=== PATIENT | male | born 1955 | race Caucasian/White ===

== ENCOUNTER → 2022-02-20 13:05 | Outpatient (BNVA) | payer MEDICARE, MEDICAID, SELFPAY | PROVIDERS: PCP Internal Medicine; Visit Provider Nurse Practitioner Family | DX: R56.9 Unspecified convulsions (principal); Z79.899 Other long term (current) drug therapy | CPT/HCPCS: 99202 ==

== ENCOUNTER → 2022-07-03 13:43 | Outpatient (BNVA) | payer MEDICARE, MEDICAID, SELFPAY | PROVIDERS: PCP Internal Medicine; Visit Provider Nurse Practitioner Family | DX: R56.9 Unspecified convulsions (principal); Z79.899 Other long term (current) drug therapy | CPT/HCPCS: 99212 ==

== ENCOUNTER 2023-02-24 08:46 | Outpatient (AMB) | payer MEDICARE, MEDICAID, SELFPAY ==
--- NOTE | 2023-02-24 08:53 | A.OFFVIS_ITS ---
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 Pt currently on Dilantin 100 mg TID and his seizure controls well. He has not have a seizure episodes more than 5 years. 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 Pt is wheel chair bound, and has right side weakness. Denies behavior issue. He is compliant all his medications. Lab result reviewed, ALK phos 185 H and Dilantin level was 7.4 L. [facility] Social History (Updated 02/24/23 @ 08:57 by Kirstie Sullivan [facility]) Alcohol intake: former Patient Tobacco Use Status: Former Tobacco user Review of Systems Const All systems reviewed & are unremarkable except as noted in HPI and below Physical Exam Vital Signs: Last Vital Signs Pulse 65 02/24/23 08:59 BP 130/62 02/24/23 08:59 Pulse Ox 95 02/24/23 08:59 Oxygen Delivery Method Room Air 02/24/23 08:59 Const General: cooperative Nutritional Appearance: obese Limitations: physical limitations, wheelchair and other limitations (cognitive impairment) Resp Effort & Inspection: normal respiratory effort Neuro Other: Difficulty follow directions. Cognitive impairment. Right upper and lower extremities weakness. Right arm contracted. General: Unable to assess gait Gait exam (Neuro): Unable to assess gait Psych Appearance: grossly normal Attitude: cooperative Assessment & Plan Assessment & Plan (1) Seizure: Code(s): R56.9 - Unspecified convulsions Plan Continue to take Dilantin 100 mg TID. Continue to monitor his liver function. Will check labs before next visit. Orders: Orders Complete Blood Count Auto Diff Today R56.9 - Unspecified convulsions Comprehensive Met. Panel Today R56.9 - Unspecified convulsions Phenytoin Dilantin Today R56.9 - Unspecified convulsions Coding Level of Care Code Est Pt Level 3 (91357) Diagnoses Seizure R56.9
[2023-02-24 08:59] VITALS: BP 130/62; PULSE 65; O2SAT 95
== END 2023-02-24 09:15 | disposition home or self-care (01) ==
LOC: HO.HSMS 08:46
PROVIDERS: PCP Internal Medicine; Visit Provider Nurse Practitioner Family
DX: R56.9 Unspecified convulsions (principal)
CPT/HCPCS: 99213

== ENCOUNTER → 2023-02-24 08:46 | Outpatient (BNVA) | payer MEDICARE, MEDICAID, SELFPAY | PROVIDERS: PCP Internal Medicine; Visit Provider Nurse Practitioner Family | DX: R56.9 Unspecified convulsions (principal); Z86.73 Personal history of transient ischemic attack (TIA), and cerebral infarction without residual deficits; Z99.3 Dependence on wheelchair | CPT/HCPCS: 99212 ==

== ENCOUNTER 2024-10-28 10:05 | Outpatient (REF) | payer MEDICARE, MEDICAID, SELFPAY ==
[2024-10-28 14:50] LABS: MANUAL DIFF FLAG NO
[2024-10-28 14:59] LABS: Hematocrit 43.1 % (42.0-52.0); Hemoglobin 14.6 g/dl (14.0-18.0); Imm Gran Abs Auto 0.02 X10*3/uL (0.00-0.03); Imm Gran Pct Auto 0.3 % (0.0-0.4); Lymphocytes Absolute Auto 1.8 X10*3/uL (1.2-4.9); Mean Corpuscular HGB Conc 33.9 g/dl (31.0-36.0); Mean Corpuscular Hemoglobin 30.4 pg (27.0-33.0); Mean Corpuscular Volume 89.6 fL (80.0-98.0); NRBC Abs Auto 0.000 X10*3/uL (0.0-0.012); NRBC Pct Auto 0.0 /100WBC (0.0-0.2); Platelet Count 243 X10*3/uL (160-400); Red Blood Count 4.81 X10*6/uL (4.60-5.80); White Blood Count 7.6 X10*3/uL (4.8-10.8)
[2024-10-28 15:43] LABS: Alanine Aminotransferase 29 U/L (0-40); Albumin Level 4.4 g/dL (3.5-5.0); Alkaline Phosphatase 167 U/L (39-117); Anion Gap 10 (12-20); Aspartate Amino Transferase 26 U/L (5-37); Blood Urea Nitrogen 17 mg/dL (9-16); Calcium 9.9 mg/dL (8.4-10.2); Carbon Dioxide 27 mmol/L (22-29); Chloride 107 mmol/L (96-108); Estimated Glomerular Filt Rate > 60; Potassium 4.4 mmol/L (3.3-5.1); Sodium 140 mmol/L (135-145); Total Protein 7.2 g/dL (6.5-8.0)
== END 2024-10-28 10:06 | disposition home or self-care (01) ==
LOC: HO.HKASLDS 10:05
PROVIDERS: PCP Internal Medicine; Visit Provider Psychiatry & Neurology Neurology
DX: R56.9 Unspecified convulsions (principal)
CPT/HCPCS: 36415; 80053; 80185; 85025; 99212

== ENCOUNTER 2024-10-28 10:05 | Outpatient (AMB) | payer MEDICARE, MEDICAID, SELFPAY ==
--- NOTE | 2024-10-28 10:05 | MHC.OFFVIS ---
Vital Signs 10/28/24 10:07 Height 5 ft 6 in Weight 240 lb BMI 38.7 BP 138/94 H Blood Pressure Location Rt brachial Position Sitting Pulse 65 Pulse Source Pulse Oximeter Pulse Oximetry (%) 96 Oxygen Delivery Method Room Air Intake Visit Reasons: f/u appt Intake Note: patient following up on seizures last saw Dionte on 02/24/23 Allergies No Known Allergies Allergy (Verified 10/28/24 10:08) Medication List - Last Reconciled 10/28/24 by Shira Diaz MD acetaminophen mg PO albuterol 90 mcg/actuation mcg inhalation atorvastatin (Lipitor) 80 mg PO DAILY clotrimazole-betamethasone 1-0.05 % appl topical DAILY PRN ezetimibe 10 mg PO DAILY fluoride (sodium) 1.1% PO fluticasone propionate 50 mcg/actuation (Flonase Allergy Relief) 1 spray intranasal DAILY furosemide (Lasix) 40 mg PO DAILY loratadine 10 mg PO DAILY multivitamin 1 tab PO DAILY omeprazole 40 mg PO BID phenytoin sodium extended 100 mg PO TID HPI Comments Details: 69 y/o male patient presents with [facility] staff for follow up of seizure. Pt currently on Dilantin 100 mg TID . He has not had a seizure episodes for more than 5 years. 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 Pt has right side weakness. Denies behavior issue. He is compliant all his medications. [facility] Medical History (Updated 10/28/24 @ 10:33 by INÉS Turner) Contracture, right hand Obesity CHF (congestive heart failure) Vascular dementia Seasonal allergies Periodontal disease Onychomycosis Eczema Hyperlipidemia GERD (gastroesophageal reflux disease) Seizure disorder COPD (chronic obstructive pulmonary disease) Social History Alcohol intake: former Patient Tobacco Use Status: Former Tobacco user Physical Exam Vital Signs: Last Vital Signs Pulse 65 10/28/24 10:07 BP 138/94 H 10/28/24 10:07 Pulse Ox 96 10/28/24 10:07 Oxygen Delivery Method Room Air 10/28/24 10:07 BMI result Body Mass Index 38.7 Const General: cooperative Nutritional Appearance: obese Limitations: physical limitations, wheelchair and other limitations (cognitive impairment) Resp Effort & Inspection: normal respiratory effort Neuro Other: Difficulty follow directions. Cognitive impairment. Right upper and lower extremities weakness. Right arm contracted. Gait- wide based with right crcumduction Psych Appearance: grossly normal Attitude: cooperative Assessment & Plan Assessment & Plan (1) Seizure: Code(s): R56.9 - Unspecified convulsions Category: Medical Plan Continue to take Dilantin 100 mg TID. Continue to monitor his liver function. Will check labs before next visit. Orders: Orders Comprehensive Met. Panel Today R56.9 - Unspecified convulsions Phenytoin Dilantin Today R56.9 - Unspecified convulsions Complete Blood Count Auto Diff Today R56.9 - Unspecified convulsions Medications: New phenytoin sodium extended 100 mg PO TID 90 caps 6RF Coding Level of Care Code Est Pt Level 4 (67599) Diagnoses Seizure R56.9
[2024-10-28 10:07] VITALS: BP 138/94; PULSE 65; O2SAT 96; BMI 38.7
== END 2024-10-28 10:35 | disposition home or self-care (01) ==
LOC: HO.HSMS 10:05
PROVIDERS: PCP Internal Medicine; Visit Provider Psychiatry & Neurology Neurology
DX: R56.9 Unspecified convulsions (principal)
CPT/HCPCS: 99214